=== PATIENT | female | born 1985 | race Caucasian/White ===

== ENCOUNTER → 2021-08-16 08:47 | Outpatient (CLI) | payer OTHER, SELFPAY ==
[2021-08-16 09:25] LABS: Add Manual Diff / Slide Review NO; Basophils Absolute Auto 0 /uL (0-100); Basophils Percent Auto 0.5 % (0-2); Eosinophils Absolute Auto 200 /uL (0-450); Eosinophils Percent Auto 2.5 % (2-4); Hematocrit 41.6 % (36-46); Lymphocytes Absolute Auto 1700 /uL (1100-4500); Mean Corpuscular HGB Conc 33.8 % (30-36); Mean Corpuscular Hemoglobin 31.9 PG (26-34); Mean Corpuscular Volume 94.6 fL (80-100); Monocytes Absolute Auto 400 /uL (0-900); Monocytes Percent Auto 5.2 % (3-14); Neutrophils Absolute Auto 5800 /uL (1500-7000); Neutrophils Percent Auto 70.8 % (50-75); Platelet Count 304 X10^3/uL (150-400); Red Blood Cell Count 4.39 X10^6/uL (4.0-5.2); Red Cell Distribution Width 13.2 % (11.6-14.8); White Blood Cell Count 8.2 X10^3/uL (4.5-11.0)
[2021-08-16 09:36] LABS: Hemoglobin A1C% w Est Avg Glu 4.7 % (4.0-6.0)
[2021-08-16 09:38] LABS: Alanine Aminotransferase 24 IU/L (<35); Albumin 4.2 g/dL (3.5-5.0); Albumin Globulin Ratio 1.4 (1.0-2.8); Alkaline Phosphatase 85 U/L (38-126); Aspartate Aminotransferase 23 IU/L (14-36); BUN Creatinine Ratio 18.8 (6-22); Bilirubin Total 0.5 mg/dL (0.2-1.3); Blood Urea Nitrogen 12 mg/dL (7-17); Calcium 9.2 mg/dL (8.4-10.2); Carbon Dioxide 29 mmol/L (22-32); Chloride 105 mmol/L (98-107); Cholesterol 144 mg/dL (140-199); Estimated Glomerular Filt Rate > 60.0 mL/min (>60); Globulin 3.1 g/dL (1.7-4.1); Glucose 100 mg/dL (70-100); HDL Cholesterol 42 mg/dL (40-60); HEMOLYSIS < 15 (0-50); LDL Cholesterol Calculated 84 mg/dL (<100); Potassium 3.9 mmol/L (3.4-5.1); Sodium 140 mmol/L (137-145); Total Protein 7.3 g/dL (6.3-8.2); Triglycerides 88 mg/dL (35-150)
[2021-08-16 09:51] LABS: Vitamin D 25 Hydroxy (D3) 37.3 ng/mL (30.0-100.0)
[2021-08-16 10:06] LABS: TSH w/ Reflex to FT4 1.67 uIU/mL (0.47-4.68)
== END ==
PROVIDERS: PCP Family Medicine; Referring Provider Family Medicine; Visit Provider Family Medicine
DX: E16.2 Hypoglycemia, unspecified (principal); E66.9 Obesity, unspecified; E55.9 Vitamin D deficiency, unspecified
CPT/HCPCS: 36415; 80053; 80061; 82306; 83036; 84443; 85025

== ENCOUNTER 2021-10-28 09:00 | Outpatient (RCR) | payer OTHER, SELFPAY ==
--- NOTE | 2021-09-09 14:37 | PT.OIE ---
Current Diagnoses Unspecified urinary incontinence (09/09/21) Past Medical History (Last Updated 08/20/21 @ 20:24 by Miriam Murphy) Abnormal Pap smear of cervix (~2008) Anxiety and depression Family history of breast cancer History of placement of ear tubes (~1988) Hypoglycemia MTHFR (methylene THF reductase) deficiency and homocystinuria (~2008) Obesity (BMI 30.0-34.9) Urinary incontinence (~2019) Vitamin D deficiency Past Surgical History (Last Updated 08/20/21 @ 20:24 by Miriam Murphy) Anesthesia History of placement of ear tubes (~1988) Visit Care Team Role Provider Type Abdon Nixon MD Attending Provider Physician Family Provider Primary Care Provider Referring Provider Specialty: [facility] Address: [address] [place] [address] Email: [email or web address] Physical Therapy Initial Evaluation PT-OP-A Visit Information Start: 09/06/21 13:35 Freq: Status: Active Protocol: Document 09/09/21 07:30 AMB (Rec: 09/09/21 10:45 AMB [email or web address]) Out-Patient Physical Therapy Visit Information Visit Information Visit Type Initial Evaluation Visit Start Time 07:30 Visit Stop Time 08:15 Total Visit Minutes 45 Visit Number 1 PT-OP-B Current Condition Start: 09/06/21 13:35 Freq: Status: Active Protocol: Document 09/09/21 07:36 AMB (Rec: 09/09/21 07:54 AMB [id number]) Current Condition History of Current Condition Onset Date One year ago Current Complaints Constant urinary leaking History of Current Condition Meli feels like she is constantly leaking but does notice that Running, jumping, sneezing, coughing makes it worse. Denies urgency or triggers. Even notices leaking at night. Last child was born 4 years ago, thinks she was leaking at that point but not as bad. No history of UTI. Voids every 1.5 hours. Heaviness with jumping but otherwise doesn't feel heaviness, but does note painful intercourse at times, not always. 3 vaginals deliveries, denies extended pushing. Tearing with the first two. Treatment Goals Patient/Caregiver Goals Reduce leaking Prior Functional Status Baseline Function- ADL's Independent Baseline Function- Mobility Independent Personal Factors Other Personal Factors That May Effect low back pain Therapy/Recovery PT-OP-C Subjective Start: 09/06/21 13:35 Freq: Status: Active Protocol: Document 09/09/21 07:15 AMB (Rec: 09/12/21 09:00 AMB [email or web address]) Patient Questionnaires Pelvic Pain and Urgency/Frequency Patient Symptom Scale Pelvic Pain Score 13 PT-OP-I Pelvic Floor Start: 09/06/21 13:35 Freq: Status: Active Protocol: Document 09/09/21 07:15 AMB (Rec: 09/12/21 09:00 AMB [email or web address]) Pelvic Floor Assessment Urine Pelvic Floor Surgery No Leakage Size Medium Leakage Cause Cough,Exercise,Lifting,Sneeze Leaks Per Day many Voiding Frequency every 1.5 hours Nocturia 2 Urine Pad Type Maxi Pad Bowel Other Bowel Symptoms denies constipation Prolapse Cystocele Grade 2 Perineal Descent Resting Absent Bearing Present Contraction Ability Manual Muscle Testing Left 1 Manual Muscle Testing Right 1 Manual Muscle Testing Anterior 1 Manual Muscle Testing Posterior 2 Muscle Endurance (Seconds) 2 Number of Quick Contractions In 10 3 Seconds Comments Pelvic Floor Comments Poor levator engagement, able to contract pelvic floor but mostly posterior. 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 PT-OP-T Assessment and Plan Start: 09/06/21 13:35 Freq: Status: Active Protocol: Document 09/09/21 07:15 AMB (Rec: 09/12/21 09:00 AMB [email or web address]) Physical Therapy Assessment Rehab Potential Rehabilitation Potential Good Evaluation Complexity Number of Personal Factors/Comorbidities 1-2 Number of Body Systems Impaired 1-2 Clinical Presentation at Evaluation Stable Impairments Impairments Functional Activities,Strength Goals Two Impairment Continence Short Term Goal (STG) Meli will move from sit to stand without leaking. STG Duration 4 weeks [employer] Cable Splicer Goal (LTG) Meli will cough without leaking urine. LTG Duration 8 weeks One Impairment Strength Short Term Goal (STG) Meli will improve her pelvic floor strength by ryan her pelvic floor for 10 seconds. STG Duration 4 weeks Half-Way Goal (LTG) Meli will improve her pelvic floor strength so that she can contract her pelvic floor while moving from sit to stand . LTG Duration 8 weeks Assessment Summary Assessment Meli attends physical therapy with a feeling of constant leaking, but it sounds more like stress incontinence that has progressed in severity so that she is leaking with sit to stand and walking in addition to running/coughing as she used to experience after the of her 3rd child. She had poor pelvic floor strength overall, especially at levator ani. She will benefit from pelvic floor physical therapy for strengtheing to reduce her stress urinary incontinence and frequency. Physical Therapy Plan Frequency and Duration Frequency of Treatment 1x/Week Duration of Treatment 10 weeks Plan of Care Start Date 09/09/21 Plan of Care End Date 11/18/21 Therapeutic Interventions Therapeutic Interventions Home Exercise Program,Manual Therapy,Neuromuscular Re- education,Self-Care/Home Management,Therapeutic Activities,Therapeutic Exercises Modalities Biofeedback,Electric Stimulation Next Visit Focus/Plan Next Note Type Treatment Note Next Visit Plan sEMG vs NMES progress HEP start with supine/seated
--- NOTE | 2021-09-09 14:38 | PT.OPPOC ---
Physical, Occupational & Speech Therapy At [facility] Current Diagnoses Unspecified urinary incontinence (09/09/21) Visit Care Team Role Provider Type Abdon Nixon MD Attending Provider Physician Family Provider Primary Care Provider Referring Provider Specialty: Family Practice Address: [address] [place] [id number] Email: [email or web address] Plan Of Care PT-OP-T Assessment and Plan Start: 09/06/21 13:35 Freq: Status: Active Protocol: Document 09/09/21 07:15 AMB (Rec: 09/12/21 09:00 AMB [email or web address]) Physical Therapy Assessment Rehab Potential Rehabilitation Potential Good Evaluation Complexity Number of Personal Factors/Comorbidities 1-2 Number of Body Systems Impaired 1-2 Clinical Presentation at Evaluation Stable Impairments Impairments Functional Activities,Strength Goals Two Impairment Continence Short Term Goal (STG) Meli will move from sit to stand without leaking. STG Duration 4 weeks Police Pilot Goal (LTG) Mlei will cough without leaking urine. LTG Duration 8 weeks One Impairment Strength Short Term Goal (STG) Meli will improve her pelvic floor strength by ryan her pelvic floor for 10 seconds. STG Duration 4 weeks Police Pilot Goal (LTG) Meli will improve her pelvic floor strength so that she can contract her pelvic floor while moving from sit to stand . LTG Duration 8 weeks Assessment Summary Assessment Meli attends physical therapy with a feeling of constant leaking, but it sounds more like stress incontinence that has progressed in severity so that she is leaking with sit to stand and walking in addition to running/coughing as she used to experience after the of her 3rd child. She had poor pelvic floor strength overall, especially at levator ani. She will benefit from pelvic floor physical therapy for strengtheing to reduce her stress urinary incontinence and frequency. Physical Therapy Plan Frequency and Duration Frequency of Treatment 1x/Week Duration of Treatment 10 weeks Plan of Care Start Date 09/09/21 Plan of Care End Date 11/18/21 Therapeutic Interventions Therapeutic Interventions Home Exercise Program,Manual Therapy,Neuromuscular Re- education,Self-Care/Home Management,Therapeutic Activities,Therapeutic Exercises Modalities Biofeedback,Electric Stimulation Next Visit Focus/Plan Next Note Type Treatment Note Next Visit Plan sEMG vs NMES progress HEP start with supine/seated Plan of Care Dates Plan of Care Start Date 09/09/21 Plan of Care End Date 11/18/21 Electronically Signed by: Lili Barton, PT 09/12/21 [id number] Please Sign and Return: I have reviewed this Plan of Care and certify that the skilled therapy services above are required to meet the patient?s needs. Physician Signature Date Printed Name and Credentials Clinical Instructor Signature Printed Name and Credentials
--- NOTE | 2021-09-16 15:39 | PT.OTN ---
Current Diagnoses Unspecified urinary incontinence (09/16/21) Physical Therapy Treatment Note PT-OP-A Visit Information Start: 09/06/21 13:35 Freq: Status: Active Protocol: Document 09/16/21 08:11 AMB (Rec: 09/16/21 09:07 AMB [id number]) Out-Patient Physical Therapy Visit Information Visit Information Visit Type Treatment Note Visit Start Time 08:15 Visit Stop Time 09:00 Total Visit Minutes 45 Visit Number 2 PT-OP-B Current Condition Start: 09/06/21 13:35 Freq: Status: Active Protocol: Document 09/09/21 07:36 AMB (Rec: 09/09/21 07:54 AMB [id number]) Current Condition History of Current Condition Onset Date One year ago Current Complaints Constant urinary leaking History of Current Condition Meli feels like she is constantly leaking but does notice that Running, jumping, sneezing, coughing makes it worse. Denies urgency or triggers. Even notices leaking at night. Last child was born 4 years ago, thinks she was leaking at that point but not as bad. No history of UTI. Voids every 1.5 hours. Heaviness with jumping but otherwise doesn't feel heaviness, but does note painful intercourse at times, not always. 3 vaginals deliveries, denies extended pushing. Tearing with the first two. Treatment Goals Patient/Caregiver Goals Reduce leaking Prior Functional Status Baseline Function- ADL's Independent Baseline Function- Mobility Independent Personal Factors Other Personal Factors That May Effect low back pain Therapy/Recovery PT-OP-C Subjective Start: 09/06/21 13:35 Freq: Status: Active Protocol: Document 09/16/21 08:11 AMB (Rec: 09/16/21 09:07 AMB [id number]) OP-PT Subjective Patient Comments Patient Comments Pt reports it has been hard not to overuse abs while practicing at home. PT-OP-I Pelvic Floor Start: 09/06/21 13:35 Freq: Status: Active Protocol: Document 09/09/21 07:15 AMB (Rec: 09/12/21 09:00 AMB [email or web address]) Pelvic Floor Assessment Urine Pelvic Floor Surgery No Leakage Size Medium Leakage Cause Cough,Exercise,Lifting,Sneeze Leaks Per Day many Voiding Frequency every 1.5 hours Nocturia 2 Urine Pad Type Maxi Pad Bowel Other Bowel Symptoms denies constipation Prolapse Cystocele Grade 2 Perineal Descent Resting Absent Bearing Present Contraction Ability Manual Muscle Testing Left 1 Manual Muscle Testing Right 1 Manual Muscle Testing Anterior 1 Manual Muscle Testing Posterior 2 Muscle Endurance (Seconds) 2 Number of Quick Contractions In 10 3 Seconds Comments Pelvic Floor Comments Poor levator engagement, able to contract pelvic floor but mostly posterior. 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 PT-OP-Q Treatments Start: 09/06/21 13:35 Freq: Status: Active Protocol: Document 09/16/21 08:11 AMB (Rec: 09/16/21 09:07 AMB [id number]) Therapeutic Exercises Sitting Exercises 1 Sitting Exercise Name long holds/ quick flicks Comments seated is more challenging, regi c ant pelvic tilt Neuro Re-Education Treatment Other Activities sEMG Details quick flicks and long holds Reps/Duration 30 min PT-OP-T Assessment and Plan Start: 09/06/21 13:35 Freq: Status: Active Protocol: Document 09/16/21 08:11 AMB (Rec: 09/16/21 09:07 AMB [id number]) Physical Therapy Assessment Assessment Summary Assessment sEMG: resting baseline 7, avg 20, max 43. quick flicks: MAX 24, AVG 13, BASELINE 7. Pt was using her abs during long holds but was better able to isolate with quick flicks. . Physical Therapy Plan Next Visit Focus/Plan Next Visit Plan progress into seated as tolerated, further educate in breathing
--- NOTE | 2021-09-30 15:59 | PT.OTN ---
Current Diagnoses Unspecified urinary incontinence (09/30/21) Physical Therapy Treatment Note PT-OP-A Visit Information Start: 09/06/21 13:35 Freq: Status: Active Protocol: Document 09/30/21 10:29 AMB (Rec: 09/30/21 11:17 AMB [id number]) Out-Patient Physical Therapy Visit Information Visit Information Visit Type Treatment Note Visit Start Time 10:30 Visit Stop Time 11:15 Total Visit Minutes 45 Visit Number 3 PT-OP-B Current Condition Start: 09/06/21 13:35 Freq: Status: Active Protocol: Document 09/09/21 07:36 AMB (Rec: 09/09/21 07:54 AMB [id number]) Current Condition History of Current Condition Onset Date One year ago Current Complaints Constant urinary leaking History of Current Condition Meli feels like she is constantly leaking but does notice that Running, jumping, sneezing, coughing makes it worse. Denies urgency or triggers. Even notices leaking at night. Last child was born 4 years ago, thinks she was leaking at that point but not as bad. No history of UTI. Voids every 1.5 hours. Heaviness with jumping but otherwise doesn't feel heaviness, but does note painful intercourse at times, not always. 3 vaginals deliveries, denies extended pushing. Tearing with the first two. Treatment Goals Patient/Caregiver Goals Reduce leaking Prior Functional Status Baseline Function- ADL's Independent Baseline Function- Mobility Independent Personal Factors Other Personal Factors That May Effect low back pain Therapy/Recovery PT-OP-C Subjective Start: 09/06/21 13:35 Freq: Status: Active Protocol: Document 09/30/21 10:29 AMB (Rec: 09/30/21 11:17 AMB [id number]) OP-PT Subjective Patient Comments Patient Comments Pt reports no significant change in sx. PT-OP-I Pelvic Floor Start: 09/06/21 13:35 Freq: Status: Active Protocol: Document 09/09/21 07:15 AMB (Rec: 09/12/21 09:00 AMB [email or web address]) Pelvic Floor Assessment Urine Pelvic Floor Surgery No Leakage Size Medium Leakage Cause Cough,Exercise,Lifting,Sneeze Leaks Per Day many Voiding Frequency every 1.5 hours Nocturia 2 Urine Pad Type Maxi Pad Bowel Other Bowel Symptoms denies constipation Prolapse Cystocele Grade 2 Perineal Descent Resting Absent Bearing Present Contraction Ability Manual Muscle Testing Left 1 Manual Muscle Testing Right 1 Manual Muscle Testing Anterior 1 Manual Muscle Testing Posterior 2 Muscle Endurance (Seconds) 2 Number of Quick Contractions In 10 3 Seconds Comments Pelvic Floor Comments Poor levator engagement, able to contract pelvic floor but mostly posterior. 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 PT-OP-Q Treatments Start: 09/06/21 13:35 Freq: Status: Active Protocol: Document 09/30/21 10:29 AMB (Rec: 09/30/21 15:55 AMB [email or web address]) Therapeutic Exercises Supine Exercises 1 Supine Exercise Name long holds, quick flicks Reps/Minutes 5x4- lots of rest Comments legs elevated on bolsters, cue breath Sitting Exercises 2 Sitting Exercise Name roll out Equipment Used t band #3 Reps/Minutes 2x10 Comments cue contract pf, a little TA is ok 1 Sitting Exercise Name roll in Reps/Minutes 2x10 Comments with ball PT-OP-T Assessment and Plan Start: 09/06/21 13:35 Freq: Status: Active Protocol: Document 09/30/21 10:29 AMB (Rec: 09/30/21 11:17 AMB [id number]) Physical Therapy Assessment Goals Two Impairment Continence Short Term Goal (STG) Meli will move from sit to stand without leaking. STG Duration 4 weeks Senior Care Goal (LTG) Meli will cough without leaking urine. LTG Duration 8 weeks One Impairment Strength Short Term Goal (STG) Meli will improve her pelvic floor strength by ryan her pelvic floor for 10 seconds. STG Duration 4 weeks Senior Care Goal (LTG) Meli will improve her pelvic floor strength so that she can contract her pelvic floor while moving from sit to stand . LTG Duration 8 weeks Assessment Summary Assessment Meli continues to have frequent urge. Is using a large pad when walking on the treadmill. Discussed pessary as a future option if continues to be an issue as pt is concerned about weak stream- discussed prolapse and changes that can occur with this. Pt continues to have difficulty ryan for more than a second or two. Continued to educate in urge suppression techniques. Physical Therapy Plan Next Visit Focus/Plan Next Visit Plan Meli could try sEMG again or NMES if she is interested (was previously nervous about trying NMES). Continue to try to progress strength of pelvic floor contraction in supine, legs elevated, or seated. Urge reduction strategies.
--- NOTE | 2021-10-15 17:26 | PT.OTN ---
Current Diagnoses Unspecified urinary incontinence (10/15/21) Physical Therapy Treatment Note PT-OP-A Visit Information Start: 09/06/21 13:35 Freq: Status: Active Protocol: Document 10/15/21 16:05 [facility] (Rec: 10/15/21 16:12 [facility] [id number]) Out-Patient Physical Therapy Visit Information Visit Information Visit Type Treatment Note Visit Start Time 16:05 Visit Stop Time 16:50 Total Visit Minutes 45 Visit Number 4 PT-OP-B Current Condition Start: 09/06/21 13:35 Freq: Status: Active Protocol: Document 09/09/21 07:36 AMB (Rec: 09/09/21 07:54 AMB [id number]) Current Condition History of Current Condition Onset Date One year ago Current Complaints Constant urinary leaking History of Current Condition Meli feels like she is constantly leaking but does notice that Running, jumping, sneezing, coughing makes it worse. Denies urgency or triggers. Even notices leaking at night. Last child was born 4 years ago, thinks she was leaking at that point but not as bad. No history of UTI. Voids every 1.5 hours. Heaviness with jumping but otherwise doesn't feel heaviness, but does note painful intercourse at times, not always. 3 vaginals deliveries, denies extended pushing. Tearing with the first two. Treatment Goals Patient/Caregiver Goals Reduce leaking Prior Functional Status Baseline Function- ADL's Independent Baseline Function- Mobility Independent Personal Factors Other Personal Factors That May Effect low back pain Therapy/Recovery PT-OP-C Subjective Start: 09/06/21 13:35 Freq: Status: Active Protocol: Document 10/15/21 16:07 [facility] (Rec: 10/15/21 16:12 [facility] [id number]) OP-PT Subjective Patient Comments Patient Comments Meli reports she is still really having a difficult time finding her pelvic floor Patient Reported Progress Same PT-OP-I Pelvic Floor Start: 09/06/21 13:35 Freq: Status: Active Protocol: Document 09/09/21 07:15 AMB (Rec: 09/12/21 09:00 AMB [email or web address]) Pelvic Floor Assessment Urine Pelvic Floor Surgery No Leakage Size Medium Leakage Cause Cough,Exercise,Lifting,Sneeze Leaks Per Day many Voiding Frequency every 1.5 hours Nocturia 2 Urine Pad Type Maxi Pad Bowel Other Bowel Symptoms denies constipation Prolapse Cystocele Grade 2 Perineal Descent Resting Absent Bearing Present Contraction Ability Manual Muscle Testing Left 1 Manual Muscle Testing Right 1 Manual Muscle Testing Anterior 1 Manual Muscle Testing Posterior 2 Muscle Endurance (Seconds) 2 Number of Quick Contractions In 10 3 Seconds Comments Pelvic Floor Comments Poor levator engagement, able to contract pelvic floor but mostly posterior. 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 PT-OP-Q Treatments Start: 09/06/21 13:35 Freq: Status: Active Protocol: Document 10/15/21 16:05 [facility] (Rec: 10/15/21 17:25 [facility] [id number]) Therapeutic Exercises Supine Exercises 1 Supine Exercise Name pelvic floor long holds Reps/Minutes 10 second hold with 20 second relaxation Comments tried melanie template on EMG biofeedback to promote full pelvic floor relax Neuro Re-Education Treatment Other Activities NMES for the pelvic floor Details level 7 NMES Reps/Duration 10 min Comments pt could feel the right anterior and posterior and then towards the end she could feel the left posterior. Good tolerance for NMES sEMG Details EMG biofeedback Comments melanie template was used to help with pelvic floor relaxation. Pts resting tone was at 5 today and she had difficulty relaxing below this. Time was spent on anatomy of pelvic floor relaxation PT-OP-T Assessment and Plan Start: 09/06/21 13:35 Freq: Status: Active Protocol: Document 10/15/21 16:05 [facility] (Rec: 10/15/21 17:25 [facility] [id number]) Physical Therapy Assessment Assessment Summary Assessment On EMG biofeedback today Meli' s resting tone was elevated to 5 uv, she had difficulty relaxing any further than that . Time was spend on pelvic floor relaxation using the melanie template on EMG biofeedback and then Meli was given the modified squat stretch for her pelvic floor. I encouraged long rest period in between her contractions. NMES was initiated today and Meli tolerated this well. She was not able to feel the anterior left side but could feel sensation on the right. Physical Therapy Plan Frequency and Duration Frequency of Treatment 1x/Week Duration of Treatment 10 weeks Plan of Care Start Date 09/09/21 Plan of Care End Date 11/18/21 Therapeutic Interventions Therapeutic Interventions Home Exercise Program,Manual Therapy,Neuromuscular Re- education,Self-Care/Home Management,Therapeutic Activities,Therapeutic Exercises Modalities Biofeedback,Electric Stimulation Next Visit Focus/Plan Next Note Type Treatment Note Next Visit Plan continue with NMES to help with pelvic floor activation and EMG biofeedback for full pelvic floor relaxation.
--- NOTE | 2021-10-24 10:59 | PT.OTN ---
Current Diagnoses Unspecified urinary incontinence (10/24/21) Physical Therapy Treatment Note PT-OP-A Visit Information Start: 09/06/21 13:35 Freq: Status: Active Protocol: Document 10/24/21 08:15 AMB (Rec: 10/24/21 16:08 AMB [id number]) Out-Patient Physical Therapy Visit Information Visit Information Visit Type Treatment Note Visit Start Time 08:15 Visit Stop Time 09:00 Total Visit Minutes 45 Visit Number 5 PT-OP-B Current Condition Start: 09/06/21 13:35 Freq: Status: Active Protocol: Document 09/09/21 07:36 AMB (Rec: 09/09/21 07:54 AMB [id number]) Current Condition History of Current Condition Onset Date One year ago Current Complaints Constant urinary leaking History of Current Condition Meli feels like she is constantly leaking but does notice that Running, jumping, sneezing, coughing makes it worse. Denies urgency or triggers. Even notices leaking at night. Last child was born 4 years ago, thinks she was leaking at that point but not as bad. No history of UTI. Voids every 1.5 hours. Heaviness with jumping but otherwise doesn't feel heaviness, but does note painful intercourse at times, not always. 3 vaginals deliveries, denies extended pushing. Tearing with the first two. Treatment Goals Patient/Caregiver Goals Reduce leaking Prior Functional Status Baseline Function- ADL's Independent Baseline Function- Mobility Independent Personal Factors Other Personal Factors That May Effect low back pain Therapy/Recovery PT-OP-C Subjective Start: 09/06/21 13:35 Freq: Status: Active Protocol: Document 10/24/21 08:15 AMB (Rec: 10/26/21 10:58 AMB [id number]) OP-PT Subjective Patient Comments Patient Comments Meli feels like she is feeling her pelvic floor more now, but continues to have hte same amount of leaking. PT-OP-I Pelvic Floor Start: 09/06/21 13:35 Freq: Status: Active Protocol: Document 09/09/21 07:15 AMB (Rec: 09/12/21 09:00 AMB [id number]) Pelvic Floor Assessment Urine Pelvic Floor Surgery No Leakage Size Medium Leakage Cause Cough,Exercise,Lifting,Sneeze Leaks Per Day many Voiding Frequency every 1.5 hours Nocturia 2 Urine Pad Type Maxi Pad Bowel Other Bowel Symptoms denies constipation Prolapse Cystocele Grade 2 Perineal Descent Resting Absent Bearing Present Contraction Ability Manual Muscle Testing Left 1 Manual Muscle Testing Right 1 Manual Muscle Testing Anterior 1 Manual Muscle Testing Posterior 2 Muscle Endurance (Seconds) 2 Number of Quick Contractions In 10 3 Seconds Comments Pelvic Floor Comments Poor levator engagement, able to contract pelvic floor but mostly posterior. 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 PT-OP-Q Treatments Start: 09/06/21 13:35 Freq: Status: Active Protocol: Document 10/24/21 08:15 AMB (Rec: 10/26/21 10:58 [facility] [id number]) Neuro Re-Education Treatment Other Activities sEMG Details EMG biofeedback Comments melanie template was used to help with pelvic floor relaxation. Pts resting tone was at 4 today and she had difficulty relaxing below this. Time was spent on anatomy of pelvic floor relaxation Self-Care/Home Management Treatment Education Other Education role of low back/ pelvic floor nerves, discussion of prolapse. Trying to contract from a relaxed position. PT-OP-T Assessment and Plan Start: 09/06/21 13:35 Freq: Status: Active Protocol: Document 10/24/21 08:15 AMB (Rec: 10/26/21 10:58 [facility] [id number]) Physical Therapy Assessment Assessment Summary Assessment Discussed role of low back ( disc herniation hx) and prolapse with sx. Meli continues to continue to have night time leaking. Does feel like strengthening is getting better. Does continue to have a difficult time completely relaxing. with sEMG today baseline got down to around 4, which is an improvement. Physical Therapy Plan Next Visit Focus/Plan Next Note Type Treatment Note Next Visit Plan continue with NMES to help with pelvic floor activation and EMG biofeedback for full pelvic floor relaxation.
--- NOTE | 2021-10-28 10:32 | PT.OTN ---
Current Diagnoses Unspecified urinary incontinence (10/28/21) Physical Therapy Treatment Note PT-OP-A Visit Information Start: 09/06/21 13:35 Freq: Status: Active Protocol: Document 10/28/21 09:00 AMB (Rec: 10/28/21 09:47 AMB [id number]) Out-Patient Physical Therapy Visit Information Visit Information Visit Type Treatment Note Visit Start Time 09:00 Visit Stop Time 09:45 Total Visit Minutes 45 Visit Number 6 PT-OP-B Current Condition Start: 09/06/21 13:35 Freq: Status: Active Protocol: Document 09/09/21 07:36 AMB (Rec: 09/09/21 07:54 AMB [id number]) Current Condition History of Current Condition Onset Date One year ago Current Complaints Constant urinary leaking History of Current Condition Meli feels like she is constantly leaking but does notice that Running, jumping, sneezing, coughing makes it worse. Denies urgency or triggers. Even notices leaking at night. Last child was born 4 years ago, thinks she was leaking at that point but not as bad. No history of UTI. Voids every 1.5 hours. Heaviness with jumping but otherwise doesn't feel heaviness, but does note painful intercourse at times, not always. 3 vaginals deliveries, denies extended pushing. Tearing with the first two. Treatment Goals Patient/Caregiver Goals Reduce leaking Prior Functional Status Baseline Function- ADL's Independent Baseline Function- Mobility Independent Personal Factors Other Personal Factors That May Effect low back pain Therapy/Recovery PT-OP-C Subjective Start: 09/06/21 13:35 Freq: Status: Active Protocol: Document 10/28/21 09:00 AMB (Rec: 10/28/21 09:47 AMB [id number]) OP-PT Subjective Patient Comments Patient Comments Meli reports no changes. PT-OP-I Pelvic Floor Start: 09/06/21 13:35 Freq: Status: Active Protocol: Document 09/09/21 07:15 AMB (Rec: 09/12/21 09:00 AMB [email or web address]) Pelvic Floor Assessment Urine Pelvic Floor Surgery No Leakage Size Medium Leakage Cause Cough,Exercise,Lifting,Sneeze Leaks Per Day many Voiding Frequency every 1.5 hours Nocturia 2 Urine Pad Type Maxi Pad Bowel Other Bowel Symptoms denies constipation Prolapse Cystocele Grade 2 Perineal Descent Resting Absent Bearing Present Contraction Ability Manual Muscle Testing Left 1 Manual Muscle Testing Right 1 Manual Muscle Testing Anterior 1 Manual Muscle Testing Posterior 2 Muscle Endurance (Seconds) 2 Number of Quick Contractions In 10 3 Seconds Comments Pelvic Floor Comments Poor levator engagement, able to contract pelvic floor but mostly posterior. 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 PT-OP-Q Treatments Start: 09/06/21 13:35 Freq: Status: Active Protocol: Document 10/28/21 09:00 AMB (Rec: 10/28/21 10:32 AMB [id number]) Therapeutic Exercises Supine Exercises 3 Supine Exercise Name R LE distraction 2 Supine Exercise Name hamstring stretch Reps/Minutes 30x2 1 Supine Exercise Name piriformis stretch Reps/Minutes 30x2 Neuro Re-Education Treatment Other Activities sEMG Details long holds Comments see assessment section PT-OP-T Assessment and Plan Start: 09/06/21 13:35 Freq: Status: Active Protocol: Document 10/28/21 09:00 AMB (Rec: 10/28/21 10:32 AMB [id number]) Physical Therapy Assessment Assessment Summary Assessment Meli showed improved ability to relax and contract her pelvic floor on command today. Getting down to 2.5 at rest and up to 13 while working. Discussed prolapse and disc herniation at length today. Pt's urgency is improving, but night time leaking continues despite improving pelvic floor strength/reducing urgency. Physical Therapy Plan Next Visit Focus/Plan Next Note Type Treatment Note Next Visit Plan Asked pt to follow up with PCP re disc herniation, as pt had a much easier time relaxing pelvic floor today after stretching- leg distraction (R ). Is disc herniation affecting her night time leaking?
--- NOTE | 2022-01-14 09:31 | PT.OPDS ---
Current Diagnoses Unspecified urinary incontinence (10/28/21) Visit Care Team Role Provider Type Abdon Nixon MD Attending Provider Physician Family Provider Primary Care Provider Referring Provider Specialty: Family Practice Address: [address] [place] [address], [facility] Email: [email or web address] Visit Number Visit Number 6 Discharge Summary PT-OP-B Current Condition Start: 09/06/21 13:35 Freq: Status: Active Protocol: Document 09/09/21 07:36 AMB (Rec: 09/09/21 07:54 AMB [id number]) Current Condition History of Current Condition Onset Date One year ago Current Complaints Constant urinary leaking History of Current Condition Meli feels like she is constantly leaking but does notice that Running, jumping, sneezing, coughing makes it worse. Denies urgency or triggers. Even notices leaking at night. Last child was born 4 years ago, thinks she was leaking at that point but not as bad. No history of UTI. Voids every 1.5 hours. Heaviness with jumping but otherwise doesn't feel heaviness, but does note painful intercourse at times, not always. 3 vaginals deliveries, denies extended pushing. Tearing with the first two. Treatment Goals Patient/Caregiver Goals Reduce leaking Prior Functional Status Baseline Function- ADL's Independent Baseline Function- Mobility Independent Personal Factors Other Personal Factors That May Effect low back pain Therapy/Recovery PT-OP-C Subjective Start: 09/06/21 13:35 Freq: Status: Active Protocol: Document 10/28/21 09:00 AMB (Rec: 10/28/21 09:47 AMB [id number]) OP-PT Subjective Patient Comments Patient Comments Meli reports no changes. PT-OP-I Pelvic Floor Start: 09/06/21 13:35 Freq: Status: Active Protocol: Document 09/09/21 07:15 AMB (Rec: 09/12/21 09:00 AMB [email or web address]) Pelvic Floor Assessment Urine Pelvic Floor Surgery No Leakage Size Medium Leakage Cause Cough,Exercise,Lifting,Sneeze Leaks Per Day many Voiding Frequency every 1.5 hours Nocturia 2 Urine Pad Type Maxi Pad Bowel Other Bowel Symptoms denies constipation Prolapse Cystocele Grade 2 Perineal Descent Resting Absent Bearing Present Contraction Ability Manual Muscle Testing Left 1 Manual Muscle Testing Right 1 Manual Muscle Testing Anterior 1 Manual Muscle Testing Posterior 2 Muscle Endurance (Seconds) 2 Number of Quick Contractions In 10 3 Seconds Comments Pelvic Floor Comments Poor levator engagement, able to contract pelvic floor but mostly posterior. 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 PT-OP-T Assessment and Plan Start: 09/06/21 13:35 Freq: Status: Active Protocol: Document 01/14/22 09:25 AMB (Rec: 01/14/22 09:31 [facility] [id number]) Physical Therapy Assessment Goals Two Impairment Continence Short Term Goal (STG) Meli will move from sit to stand without leaking. STG Duration 4 weeks [employer] Goal (LTG) Meli will cough without leaking urine. LTG Duration 8 weeks One Impairment Strength Short Term Goal (STG) Meli will improve her pelvic floor strength by ryan her pelvic floor for 10 seconds. STG Duration 4 weeks Long-Term Goal (LTG) Meli will improve her pelvic floor strength so that she can contract her pelvic floor while moving from sit to stand . LTG Duration 8 weeks Assessment Summary Assessment At Meli's last appointment she showed improved ability to relax and contract her pelvic floor on command today. Getting down to 2.5 at rest and up to 13 while working. Discussed prolapse and disc herniation at length today. Pt's urgency is improving, but night time leaking continues despite improving pelvic floor strength/reducing urgency. Physical Therapy Plan Discharge Physical Therapy Discharge Reasons No Longer Attending PT Discharge Comments Pt has not been seen in the last 2 months
== END 2022-01-16 08:40 ==
LOC: PHYS 09:00
PROVIDERS: Family Provider Family Medicine; PCP Family Medicine; Referring Provider Family Medicine; Visit Provider Family Medicine
DX: R32 Unspecified urinary incontinence (principal)
CPT/HCPCS: 97110; 97112; 97161; 97535

== ENCOUNTER → 2022-02-24 17:25 | Outpatient (CLI) | payer OTHER, SELFPAY ==
--- NOTE | 2022-02-24 17:26 | DI.RAD.S_ITS ---
PROCEDURE: XR LUMBAR SPINE 2-3V INDICATIONS: Low back pain, no trauma, hx past MRI showing herniated disk TECHNIQUE: 3 views of the lumbar spine were acquired. COMPARISON: None. FINDINGS: There are 5 [id number] lumbar type vertebral bodies. Mild dextroscoliosis centered at L4-L5 with Greco angle of less than 10?. No listhesis. Disc height loss at L4-L5 with mild degenerative endplate change. Mild facet hypertrophy at L4-L5 and L5-S1. IMPRESSION: Mild to moderate lower lumbar spine degenerative changes. Consider MRI for further evaluation. Dictated by: Kosta Valentin M.D. on 02/25/2022 at 10:11 Approved by: Kosta Valentin M.D. on 02/25/2022 at 10:12
[2022-02-24 18:48] LABS: Appearance Urine UA CLEAR; Bilirubin Urine UA NEGATIVE (NEGATIVE); Color Urine UA YELLOW; Glucose Urine UA NEGATIVE (Negative); Ketones Urine UA NEGATIVE (NEGATIVE); Leukocyte Esterase Urine UA NEGATIVE (NEGATIVE); Nitrite Urine UA NEGATIVE (Negative); Occult Blood Urine UA TRACE-INTACT (Negative); Protein Urine UA NEGATIVE (Negative); Specific Gravity Urine UA 1.015 (1.000-1.035); pH Urine UA 6.5 (4.5-8.0)
[2022-02-24 18:56] LABS: Bacteria Urine None Seen; Culture Indicated Urine Cult Not Indicated; RBC Urine 0-1/HPF (0-5/HPF); Squamous Epithelial Cell Urine 0-1 /HPF (0-5/HPF); WBC Urine 0-1/HPF (0-5/HPF)
== END ==
PROVIDERS: Family Provider Family Medicine; PCP Family Medicine; Referring Provider Family Medicine; Visit Provider Family Medicine
DX: M51.26 Other intervertebral disc displacement, lumbar region (principal); M47.817 Spondylosis without myelopathy or radiculopathy, lumbosacral region; M47.816 Spondylosis without myelopathy or radiculopathy, lumbar region; R35.0 Frequency of micturition
CPT/HCPCS: 72100; 81001

== ENCOUNTER → 2022-05-06 10:03 | Outpatient (CLI) | payer OTHER, SELFPAY ==
[2022-05-06 10:31] LABS: COVID19 -Nasal RAPID Negative (Negative)
== END ==
PROVIDERS: Family Provider Family Medicine; PCP Family Medicine; Visit Provider Physician Assistant
DX: Z20.822 Contact with and (suspected) exposure to COVID-19 (principal)
CPT/HCPCS: 87635

== ENCOUNTER → 2023-06-16 09:49 | Outpatient (CLI) | payer OTHER, SELFPAY ==
[2023-06-16 11:24] LABS: Add Manual Diff / Slide Review NO; Basophils Absolute Auto 100 /uL (0-100); Basophils Percent Auto 0.8 % (0-2); Eosinophils Absolute Auto 200 /uL (0-450); Eosinophils Percent Auto 2.5 % (2-4); Hematocrit 37.7 % (36-46); Hemoglobin 13.3 g/dL (12.0-16.0); Lymphocytes Absolute Auto 1500 /uL (1100-4500); Lymphocytes Percent Auto 21.6 % (25-40); Mean Corpuscular HGB Conc 35.3 % (30-36); Mean Corpuscular Hemoglobin 32.6 PG (26-34); Mean Corpuscular Volume 92.1 fL (80-100); Monocytes Absolute Auto 300 /uL (0-900); Monocytes Percent Auto 4.8 % (3-14); Neutrophils Absolute Auto 4900 /uL (1500-7000); Neutrophils Percent Auto 70.3 % (50-75); Platelet Count 316 X10^3/uL (150-400)
[2023-06-16 11:57] LABS: Alanine Aminotransferase 18 IU/L (<35); Albumin 3.8 g/dL (3.5-5.0); Albumin Globulin Ratio 1.2 (1.0-2.8); Alkaline Phosphatase 102 U/L (38-126); Aspartate Aminotransferase 23 IU/L (14-36); BUN Creatinine Ratio 11.4 (6-22); Bilirubin Total 0.5 mg/dL (0.2-1.3); Blood Urea Nitrogen 8 mg/dL (7-17); C-Reactive Protein Quant 1.2 mg/dL (<1.0); Calcium 8.2 mg/dL (8.4-10.2); Carbon Dioxide 26 mmol/L (22-32); Chloride 106 mmol/L (98-107); Cholesterol 116 mg/dL (140-199); Estimated Glomerular Filt Rate > 60 mL/min (>60); Globulin 3.3 g/dL (1.7-4.1); Glucose 102 mg/dL (70-100); HDL Cholesterol 30 mg/dL (40-60); HEMOLYSIS < 15 (0-50); LDL Cholesterol Calculated 72 mg/dL (<100); Potassium 3.8 mmol/L (3.4-5.1); Sodium 136 mmol/L (137-145); Total Protein 7.1 g/dL (6.3-8.2); Triglycerides 71 mg/dL (35-150)
[2023-06-16 12:00] LABS: Erythrocyte Sedimentation Rate 36 MM/HR (0-20)
[2023-06-16 12:01] LABS: Rheumatoid Factor < 8.6 IU/mL (<12.0)
[2023-06-16 12:16] LABS: TSH w/ Reflex to FT4 1.38 uIU/mL (0.47-4.68)
[2023-06-17 03:36] LABS: Labcorp Hemoglobin (Hb) A1c 5.1 % (4.8-5.6)
[2023-06-18 09:36] LABS: CCP Antibodies IgG/IgA 3 units (0-19)
[2023-06-19 18:12] LABS: ANA Screen, IFA Negative (.)
== END ==
PROVIDERS: Family Provider Family Medicine; PCP Family Medicine; Referring Provider Family Medicine; Visit Provider Family Medicine
DX: M25.40 Effusion, unspecified joint (principal); M25.50 Pain in unspecified joint; M25.60 Stiffness of unspecified joint, not elsewhere classified; E16.2 Hypoglycemia, unspecified; E55.9 Vitamin D deficiency, unspecified; E66.9 Obesity, unspecified; F41.9 Anxiety disorder, unspecified; F32.A Depression, unspecified
CPT/HCPCS: 36415; 80053; 80061; 83036; 84443; 85025; 85651; 86038; 86140; 86200; 86430

== ENCOUNTER → 2024-03-19 09:38 | Outpatient (CLI) | payer OTHER, SELFPAY | LOC: RESP 09:41 | PROVIDERS: Family Provider Family Medicine; PCP Family Medicine; Referring Provider Family Medicine; Visit Provider Family Medicine | DX: Z01.810 Encounter for preprocedural cardiovascular examination (principal) | CPT/HCPCS: 93005 ==

== ENCOUNTER → 2024-06-16 13:27 | Outpatient (CLI) | payer OTHER, SELFPAY ==
[2024-06-16 13:52] LABS: Add Manual Diff / Slide Review NO; Basophils Absolute Auto 0 /uL (0-100); Basophils Percent Auto 0.5 % (0-2); Eosinophils Absolute Auto 200 /uL (0-450); Eosinophils Percent Auto 2.1 % (2-4); Hematocrit 41.2 % (36-46); Lymphocytes Absolute Auto 1400 /uL (1100-4500); Lymphocytes Percent Auto 15.3 % (25-40); Mean Corpuscular HGB Conc 34.1 % (30-36); Mean Corpuscular Hemoglobin 31.8 PG (26-34); Mean Corpuscular Volume 93.4 fL (80-100); Monocytes Absolute Auto 500 /uL (0-900); Monocytes Percent Auto 5.1 % (3-14); Neutrophils Absolute Auto 6900 /uL (1500-7000); Platelet Count 345 X10^3/uL (150-400); Red Blood Cell Count 4.41 X10^6/uL (4.0-5.2); Red Cell Distribution Width 13.2 % (11.6-14.8)
[2024-06-16 14:24] LABS: Alanine Aminotransferase 21 IU/L (<35); Albumin 4.1 g/dL (3.5-5.0); Albumin Globulin Ratio 1.2 (1.0-2.8); Alkaline Phosphatase 88 U/L (38-126); Aspartate Aminotransferase 27 IU/L (14-36); BUN Creatinine Ratio 18.3 (6-22); Bilirubin Total 0.7 mg/dL (0.2-1.3); Blood Urea Nitrogen 13 mg/dL (7-17); Calcium 9.1 mg/dL (8.4-10.2); Carbon Dioxide 25 mmol/L (22-32); Chloride 107 mmol/L (98-107); Estimated Glomerular Filt Rate > 60 mL/min (>60); Globulin 3.3 g/dL (1.7-4.1); Glucose 120 mg/dL (70-100); HEMOLYSIS 15 (0-50); Lipase 90 U/L (23-300); Potassium 4.1 mmol/L (3.4-5.1); Sodium 139 mmol/L (137-145); Total Protein 7.4 g/dL (6.3-8.2)
== END ==
PROVIDERS: Family Provider Family Medicine; PCP Family Medicine; Referring Provider Physician Assistant; Visit Provider Physician Assistant
DX: R19.5 Other fecal abnormalities (principal)
CPT/HCPCS: 36415; 80053; 83690; 85025

== ENCOUNTER → 2024-06-27 08:57 | Outpatient (CLI) | payer OTHER, SELFPAY ==
--- NOTE | 2024-06-27 08:58 | DI.US.S_ITS ---
PROCEDURE: US ABDOMEN COMPLETE INDICATIONS: chronic discomfot x 2 mos, generalized TECHNIQUE: Real-time scanning was performed of the abdominal and retroperitoneal organs, with image documentation. COMPARISON: None. FINDINGS: Liver: Liver is normal in size and increased in echotexture. Gallbladder: No stones. Wall thickness measures 1.8 mm. Biliary ducts: Intrahepatic bile ducts are non-dilated. Extrahepatic bile duct caliber measures 3.8 mm. Normal is 6-7 mm or less in diameter, or 10 mm or less post-cholecystectomy. Pancreas: Visualized portions of the pancreas are sonographically normal. Spleen: Spleen is normal in size and homogeneous in echotexture. Kidneys: Kidneys are normal in size and echotexture. Right kidney measures 11.6 cm long; left kidney measures 12.8 cm long. No hydronephrosis or nephrolithiasis. No solid masses. Aorta: Visualized aorta is normal in caliber at less than 3 cm. Iliacs: Proximal common iliac arteries are normal in caliber at less than 2.5 cm. IVC: Intrahepatic inferior vena cava is patent. Miscellaneous: No free abdominal fluid. IMPRESSION: Mild hepatic steatosis. Dictated by: Chanda Cadet M.D. on 06/27/2024 at 19:31 Approved by: Chanda Cadet M.D. on 06/27/2024 at 19:32
== END ==
LOC: US 08:57
PROVIDERS: Family Provider Family Medicine; PCP Family Medicine; Referring Provider Family Medicine; Visit Provider Family Medicine
DX: K76.0 Fatty (change of) liver, not elsewhere classified (principal); R19.5 Other fecal abnormalities
CPT/HCPCS: 76700

== ENCOUNTER → 2024-11-22 14:37 | Outpatient (CLI) | payer OTHER, SELFPAY ==
[2024-11-22 15:31] LABS: Add Manual Diff / Slide Review NO; Basophils Absolute Auto 0 /uL (0-100); Basophils Percent Auto 0.5 % (0-2); Eosinophils Absolute Auto 300 /uL (0-450); Eosinophils Percent Auto 4.1 % (2-4); Hematocrit 41.1 % (36-46); Hemoglobin 14.2 g/dL (12.0-16.0); Lymphocytes Absolute Auto 1500 /uL (1100-4500); Mean Corpuscular HGB Conc 34.4 % (30-36); Mean Corpuscular Hemoglobin 32.6 PG (26-34); Mean Corpuscular Volume 94.6 fL (80-100); Monocytes Absolute Auto 500 /uL (0-900); Monocytes Percent Auto 6.7 % (3-14); Neutrophils Absolute Auto 4500 /uL (1500-7000); Neutrophils Percent Auto 66.7 % (50-75); Platelet Count 313 X10^3/uL (150-400); Red Blood Cell Count 4.35 X10^6/uL (4.0-5.2); Red Cell Distribution Width 12.8 % (11.6-14.8); White Blood Cell Count 6.8 X10^3/uL (4.5-11.0)
[2024-11-22 16:00] LABS: Alanine Aminotransferase 19 IU/L (<35); Albumin 4.2 g/dL (3.5-5.0); Albumin Globulin Ratio 1.6 (1.0-2.8); Alkaline Phosphatase 93 U/L (38-126); Aspartate Aminotransferase 24 IU/L (14-36); BUN Creatinine Ratio 10.1 (6-22); Bilirubin Total 0.5 mg/dL (0.2-1.3); Blood Urea Nitrogen 7 mg/dL (7-17); Carbon Dioxide 26 mmol/L (22-32); Chloride 106 mmol/L (98-107); Estimated Glomerular Filt Rate > 60 mL/min (>60); Globulin 2.7 g/dL (1.7-4.1); Glucose 93 mg/dL (70-100); HEMOLYSIS < 15 (0-50); Potassium 4.1 mmol/L (3.4-5.1); Sodium 138 mmol/L (137-145); Total Protein 6.9 g/dL (6.3-8.2)
[2024-11-22 16:01] LABS: HEMOLYSIS < 15 (0-50); Iron 54 ug/dL (37-170)
[2024-11-22 16:07] LABS: Prealbumin 16.8 mg/dL (17.6-36.0)
[2024-11-22 16:13] LABS: Percent Iron Saturation 22 % (15-50); Total Iron Binding Capacity 244 ug/dL (265-497); Transferrin 206 mg/dL (206-381)
[2024-11-22 16:16] LABS: Erythrocyte Sedimentation Rate 24 MM/HR (0-20)
[2024-11-22 16:22] LABS: Vitamin D 25 Hydroxy (D3) 34.1 ng/mL (30.0-100.0)
[2024-11-22 16:34] LABS: TSH w/ Reflex to FT4 0.91 uIU/mL (0.47-4.68)
[2024-11-22 16:52] LABS: Vitamin B12 Reflex MMA if <400 441 pg/mL (239-931)
[2024-11-22 17:10] LABS: Folate 14.8 ng/mL (2.76-20.0)
[2024-11-22 21:34] LABS: COVID-19 CEPHEID 4-PLEX PCR Negative (Negative); Influenza A - CEPHEID Flu A NEGATIVE (NEGATIVE); Influenza B - CEPHEID Flu B NEGATIVE (NEGATIVE); Respiratory Syncytial Virus Negative (Negative)
== END ==
PROVIDERS: Family Provider Family Medicine; PCP Family Medicine; Referring Provider Physician Assistant; Visit Provider Physician Assistant
DX: R05.1 Acute cough (principal); E55.9 Vitamin D deficiency, unspecified; M25.60 Stiffness of unspecified joint, not elsewhere classified; E66.9 Obesity, unspecified; E53.8 Deficiency of other specified B group vitamins; Z98.84 Bariatric surgery status; R41.89 Other symptoms and signs involving cognitive functions and awareness
CPT/HCPCS: 0241U; 36415; 80053; 82306; 82607; 82746; 83540; 83550; 84134; 84425; 84443; 85025; 85651